=== PATIENT | female | born 1960 | race Caucasian/White ===

== ENCOUNTER 2024-07-17 06:54 | Emergency (ER) | payer BC, SELFPAY ==
--- OUTSIDE RECORDS SUMMARY | 2024-07-17 06:56 | XMS_ITS | Clinical Summary ---
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 90 Capsule 3 2023 Active SUMAtriptan (IMITREX) 50 mg tabletIndications:Migr star without status migrainosus, not intractable, unspecified migraine type TAKE AT MINIMUM 2 HOURS APART. MAXIMUM DAILY DOSE: 200MG (4 TABLETS) PER 24 HOURS 9 Tablet 11 2023 Active rosuvastatin (CRESTOR) 40 mg tabletIndications:Fami lial hypercholesterolemia Take 1 Tablet (40 mg) by mouth once daily. 90 Tablet 1 2024 Active tirzepatide, weight loss, (Zepbound) 2.5 mg/0.5 mL penIndications:Hyperli pidemia, unspecified hyperlipidemia type,Obesity (BMI 30-39.9) Inject 2.5 mg subcutaneous once weekly. 6 mL 3 2024 Active estradioL (Vagifem) 10 mcg tab vaginal tabletIndications:Vagi nal atrophy INSERT 1 TABLET VAGINALLY EVERY MONDAY AND MONDAY 24 Tablet 2024 Active estradioL (Vagifem) 10 mcg tab vaginal tabletIndications:Vagi nal atrophy Insert 1 Tablet (10 mcg) into the vagina every Monday and . 24 Tablet 2 06/30 Discontinued Active Problems Problem Noted Date Diagnosed Date Hyperlipidemia, unspecified 11/14/2021 Overview (11/14/2021): Declined statin 07/2021. Coronary calcium score 10/2021=zero. plan work on nonmedication factors. Colon polyp 04/02/2021 Overview (04/02/2021): Colonoscopy 03/2021 SSA, repeat in 5 years, propofol Gastroesophageal reflux disease without esophagi tis 05/11/2018 Overview (05/11/2018): EGD 04/2017 normal Screen for colon cancer 08/15/2012 Overview (08/15/2012): Colonoscopy 07/2012 normal repeat in 10 years Hallux limitus 06/12/2012 Tachycardia, unspecified 09/26/2011 Overview (06/12/2012): Recent normal stress test, summer 2011. Kimberly Hong M.D. 06/12/2012 3:04 PM Migraine, unspecified, witho ut mention of intractable migraine without mention of status migrainosus 06/12/2007 Edema 06/12/2007 Resolved Problems Problem Noted Date Diagnosed Date Resolved Date Changing skin lesion 07/17/2009 011 Dizziness and giddiness 06/12/200707/16 Palpitations 06/12/2007 07/28/2010 Excessive or frequent menstruation 06/12/2007 07/11/2017 Encounters Date Type Department Care Team Description 06/28/2024 Refill [facility] [address] [place] [address] Anastasiia Vann, Refill Request (Vagifem) 06/27/2024 Telephone [facility] [address] [facility] [place] [address] Anastasiia Vann DO Prior Authorization (tirzepatide, weight loss, (Zepbound) 2.5 mg/0.5 mL pen (Approved 06/27/2024- 02/27/2025)) 06/25/2024 Telephone [facility] [address] [facility] [place] [address] Anastasiia Vann DO 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) 06/17/2024 10:00 AM LOGISTICS ANALYST Office Visit [facility] [address] [facility] [address] [place] [id number] Ruben Mckeon MD Follow Up (Annual f/u, labs prior, zio done 03/2024) 06/17/2024 9:31 AM LOGISTICS ANALYST - 06/17/2024 11:59 PM LOGISTICS ANALYST Hospital Encounter [facility] [address] [place] [address] Familial hypercholesterolemia 06/16/2024 Travel from Last 3 Months Immunizations Immunization Administration Dates Next Due COVID-19 vaccine (Parakweet-Bio NTech 30mcg/0.3mL) NATAN BERNARDO 03/17/2021,07/28/2020,07/07/2020 HepA-HepB (Twinrix) 10/01/2003,04/21/2003,2002 Influenza RIV4 (Age 18+ Years) PRESERV FREE 01/15 Influenza, IIV3 (Age >=3 years) 02/02/2010 Influenza, IIV4 02/02/2021,01/02/2020,03/27/2018 Td (Age >=7 Years) 03/27/2018,02/23/1998 Tdap 06/12/2007 Zoster (Shingrix-RZV, recombinant) 02/02/2021, Family History Medical History Relation Name Comments Hyperlipidemia Brother 1 Arden Shearer Hypertension Brother 1 Arden Shearer Esophageal cancer Brother 2 Calvin Hyperlipidemia Brother 2 Calvin Coronary artery disease Father Juan Shearer fi rst NH at 50, CABG at 55, heart transplant at age 60 Hyperlipidemia Father Juan Shearer Cancer-breast Maternal Grandmother Aviva hamm Hyperlipidemia Sister 1 Arlen Other Sister 1 Arlen multiple colon polyps Hyperlipidemia Sister 2 Analia Cancer-colon No Family History Cancer-ovarian No Family History Relation Name Status Comments Brother 1 Arden Shearer Brother 2 Calvin Alive Father Juan Shearer MVA Maternal Grandmother Aviva hamm Mother MVA Sister 1 Arlen Sister 2 Analia Alive Son 1 Sha Alive Son 2 Jose Alive Social History Tobacco Use Types Packs/Day Years Used Date Smoking Tobacco: Never Smokeless Tobacco: Never Tobacco Cessation:Counseling Given: Not Answered Alcohol Use Standard Drinks/Week Comments Yes 4 (1 standard drink = 0.6 oz pure alcohol) 3 times weekly a few drinks at a sitting PHQ-2 Answer Date Recorded PHQ-2 TOTAL SCORE 0 09/26/2023 Social Connections Answer Date Recorded Do you often feel lonely or isolated from those around you? 0 09/26/2023 Financial Resource Strain Answer Date R ecorded Difficulty of Paying Living Expenses 3 09/26/2023 Difficulty of Paying Living Expenses Not on file 09/26/2023 Food Insecurity Answer Date Recorded Do you worry your food will run out before you are able to buy more? 1 09/26/2023 Transportation Needs Answer Date Record ed Does lack of transportation keep you from medica l appointments? 1 09/26/2023 Does lack of transportation keep you from work, meetings or getting things that you need? 1 09/26/2023 Housing Stability Answer Date Recorded What is your housing situation today? 1 09/26/2023 Utilities Answer Date Recorded Do you have trouble paying f or utilities (for example, heat, electricity, water, phone)? 1 09/26/2023 Comments No Sex and Gender Information Value Date Recorded Sex Assigned at Not on file Legal Sex Female 6:20 AM LOGISTICS ANALYST Gender Identity Not on file Sexual Orientation Not on file Obstetrics History Para Term AB IAB SAB Ectopic Multiple Livin g Live Births 2 2 0 0 0 0 0 0 0 2 2 Date Outcome GA Total Labor Labor/2nd/3rd Weight Sex Type Anes PTL Nae A1 A5 Name Clin Para Living Para Living Last Filed Vital Signs Vital Sign Reading Time Taken Comments Blood Pressure 134/80 06/17/2024 9:59 AM LOGISTICS ANALYST Pulse 84 06/17/2024 9:59 AM LOGISTICS ANALYST Temperature 36.8 C (98.3 F) 07/30/2021 9:33 AM CDT Respiratory Rate 14 07/30/2021 9:33 AM CDT Oxygen Saturation 99% 06/17/2024 9:59 AM LOGISTICS ANALYST Inhaled Oxygen Concentration - - Weight 79.4 kg (175 lb) 06/17/2024 9:59 AM LOGISTICS ANALYST Height 162.6 cm (5' 4) 06/17/2024 9:59 AM LOGISTICS ANALYST Body Mass Index 30.04 06/17/2024 9:59 AM LOGISTICS ANALYST Plan of Treatment Upcoming Encounters Date Type Department Care Team (Late st Contact Info) Description 10/01/2024 8:20 AM CDT Ancillary Procedure [facility] [address] [place] [address] 10/01/2024 8:45 AM CDT Office Visit [facility] [address] [place] [address] Anastasiia Vann DO [address] [place] [address] Health Maintenance Due Date Last Done Comments Pneumococcal series for age 50+ (1 of 1 - PCV) 06/21/2011 COVID-19 vaccine series ( season) 2023 03/17/2021, 07/28/2020, 07/07/2020 Depression screening for age 12+ 09/25/2024 09/26/2023, 08/24/2022, 07/30/2021, Additional history exists Mammogram for age 45-75 09/25/2024 09/26/19 24, 08/24/2022, 07/27/2021, Additional history exists Influenza Vaccine (Season Ended) 2024 01/31/2022, 02/02/2021, 01/02/2020, Additional history exists BMI (ht and wt on same day) for age 18+ 06/17/2025 06/17/2024, 09/26/2023, 06/26/2023, Additional history exists Colonoscopy through age 75 04/01/202604/01, 04/01/2021, 08/15/2012, Additional history exists Pap test for age 21-65 08/25/2027 , 08/24/2022, 03/27/2018, Additional history exists Tetanus booster 03/27/2028 03/27/2018, 05/19, 02/23/1998 Lipids for age 45-75 06/17/2029 06/17/2024, 06/26/2023, 11/24/2022, Additional history exists RSV vaccine for adults or (1 - 1-dose 75+ series) 2036 Tdap Completed 06/12/2007 Hepatitis C screening for ag e 18-79 Completed 06/23/2020 Zoster (shingles) series for age 50+ Completed 02/02/2021, 11/20/2020 HIV for age 15-65 Completed 08/23/2022 Procedures Procedure Name Priority Date/Time Associated Diagnosis Comments LIPID PANEL W REFLEX MEASURED LDL Today 06/17/2024 9:55 AM LOGISTICS ANALYST Familial hypercholesterolemia EXTENDED HOLTER Routine 04/24/2024 Tachycardia XR MAMMO HOMER BILAT SCREEN Routine 09/26/2023 1:26 PM CDT Encounter for screening mammogram for malignant neoplasm of breast HPV HIGH RISK Routine 08/24/2022 8:51 AM CDT Cervical cancer screening LC HIV-1/O/2, 4TH GENERATION Routine 08/23/2022 7:25 AM CDT Screening for HIV (human immunodeficiency virus) COLONOSCOPY 04/01/2021 8:19 AM LOGISTICS ANALYST ANTI HCV Routine 06/23/2020 8:37 AM LOGISTICS ANALYST Need for hepatitis C screening test from Last 3 Months or Most Recently Relevant to Health Maintenance Results * LIPID PANEL W REFLEX MEASURED LDL (06/17/2024 9:55 AM LOGISTICS ANALYST) CHOLESTEROL,TOTAL 181 100 - 199 mg/dL 06/17/2024 10:31 AM LOGISTICS ANALYST [facility] Comment: Cholesterol, Total Reference Ranges Desirable <200 mg/dL Borderline 200-239 mg/dL High >=240 mg/dL TRIGLYCERIDES 87 <150 mg/dL 06/17/2024 10:31 AM [facility] HDL CHOLESTEROL 70 >40 mg/dL 10:31 AM [facility] NON-HDL CHOLESTEROL 111 <145 mg/dl 06/17/2024 10:31 AM [facility] CHOL/HDL RATIO 2.59 <4.50 06/17/2024 10:31 AM [facility] LDL CHOLESTEROL 94 <=130 mg/dL 06/17/2024 10:31 AM [facility] VLDL CHOLESTEROL 17 <=30 mg/dL 06/18/19 10:31 AM [facility] PROVIDER ORDERED STATUS RANDOM 06/17/2024 10:31 AM [facility] Blood BLOOD SPECIMEN / Unknown Venipuncture / Unknown 06/17/2024 9:55 AM LOGISTICS ANALYST 06/17/2024 9:55 AM [facility] us Cezar Thompson MD CHEMISTRY Final Result [facility] [address] [place] [address] * ZIO PATCH XT - weekly to monthly symptoms. (04/24/2024) 04/24/2024 Narrative Cuong Denny MD - 05/22/2024 12:00 AM LOGISTICS ANALYST Agree with Findings. Please see scan document for full report. Signed By CUONG DENNY MD Procedure Note Cuong Denny MD - 05/22/2024 Agree with Findings. Please see scan document for full report. Signed By CUONG DENNY MD us Cezar Thompson MD CARDIAC SERVICES ORD Final Result * XR MAMMO HOMER BILAT SCREEN (09/26/2023 1:26 PM CDT) Anatomical Region Laterality Modality BREASTS, Breast Left, Breast Right Bilateral Mammography Impressions 09/26/2023 2:06 PM CDT There is no radiographic evidence for malignancy. Recommend annual mammograms. MAMMOGRAM ASSESSMENT: ACR 1 Negative PATIENTS: You will also receive a letter with your examination results in an easy to read format. If you have questions about your results, please contact your referring provider. Narrative 09/26/2023 2:06 PM CDT For Patients: As a result of the Century Cures Act, medical imaging exams and procedure reports are released immediately into your electronic medical record. You may view this report before your referring provider. If you have questions, please contact your health care provider. XR MAMMO HOMER BILAT SCREEN [[id number]] CLINICAL HISTORY: This is an asymptomatic 63 y.o. patient. INDICATION FOR EXAM: Mammogram Screening. TECHNIQUE: CC & MLO views were obtained. This study was evaluated with the assistance of Computer-Aided Detection. Breast Tomosynthesis was used in interpretation. COMPARISON FILM: Yes [facility] FINDINGS: The breasts are heterogeneously dense, which may obscure small masses. There are no dominant masses, suspicious micro calcifications or areas of architectural distortion. Anastasiia Vann DO MAMMO Final Resu lt * HPV HIGH RISK (08/24/2022 8:51 AM CDT) TYPE 16 Negative Negative 08/30/2022 10:21 AM CDT [facility] TYPE 18 Negative Negative 08/30/2022 10:21 AM CDT [facility] OTHER HIGH RISK TYPES Negative Negative 08/30/2022 10:21 AM CDT [facility] Other (Cervical) Non-Blood / Unknown 08/24/2022 8:51 AM CDT 08/26/2022 4:41 PM CDT Narrative [facility] - 08/30/2022 10:21 AM CDT HPV types 16, 18, 31, 33, 35, 39, 45, 51, 52, 56, 58, 59, 66 and 68 DNA were undetectable or below the pre-set threshold. Methodology: Renetta Jocelynn 4800 HPV Test Anastasiia Osorio Edwar DO MICROBIOLOGY Final Resu lt [facility] [address] [place] [address], [place] * LC HIV-1/O/2, 4TH GENERATION (08/23/2022 7:25 AM CDT) HIV Scr 4th Gen Non Reactive Non Reactive 08/26/2022 4:08 AM CDT [facility] ([facility]) Comment: HIV Negative HIV-1/HIV-2 antibodies and HIV-1 p24 antigen were NOT detected. There is no laboratory evidence of HIV infection. Blood BLOOD SPECIMEN / Unknown Venipuncture / Unknown 08/23/2022 7:25 AM CDT 08/23/2022 7:29 AM CDT Narrative [facility]) - 08/26/2022 4:08 AM CDT Performed at: [address] [place] [id number] Gyn: Gagan Hicks MD, Phone: [phone] Anastasiia Osorio Edwar LABORATORY Final Resu lt [facility] ([facility]) [address] [place] [address], [place] * COLONOSCOPY (04/01/2021 8:19 AM LOGISTICS ANALYST) 04/01/2021 8:19 AM LOGISTICS ANALYST Narrative Transcriptions Rudy Macias MD - 04/01/2021 9:26 AM CST Patient Name: Trudi Snider Procedure Date: 04/01/2021 Gender: Female Date of : 1960 Admit Type: Outpatient Procedure: Colonoscopy Proceduralist: Rudy Macias MD , Annelise Verdugo RN(Nurse) Indications/Pre-Op Diagnosis: Screening for colorectal malignant neoplasm, Last colonoscopy: April 2010 Medications: Fentanyl 200 micrograms IV, Midazolam 5 mgIV, The level of sedation administered wasmoderate Procedure Description: The patient had risks, benefits and alternatives explained to andgave informed consent. The patient had a stable cardiopulmonary status and judged an adequate candidate for conscious sedation. The colonoscope was passed through the anus and advanced to thececum, identified by appendiceal orifice and ileocecal valve. Thecolonoscopy was performed without difficulty. The patient tolerated the procedure well. The quality of the bowel preparation was good. The ileocecal valve, appendiceal orifice, and rectum were photographed. Complications: No immediate complications. Estimated Blood Loss & Specimen: Estimated blood loss: none. Specimen collected - Yes and sent to Laboratory Findings: Skin tags were found on perianal exam. A 5 mm polyp was found in the cecum. The polyp was sessile. The polyp was removed with a cold snare. Resection and retrieval werecomplete. The colon (entire examined portion) was significantly redundant. The exam was otherwise without abnormality on direct and retroflexion views. Impressions/Post-Op Diagnosis: - Perianal skin tags found on perianal exam. - One 5 mm polyp in the cecum, removed with a cold snare. Resectedand retrieved. - Redundant colon. - The examination was otherwise normal on direct and retroflexionviews. Recommendation: - Patient has a contact number available for emergencies. The signsand symptoms of potential delayed complications were discussed with the patient. Return to normal activities tomorrow. Written discharge instructions were provided to the patient. - Resume previous diet. - Continue present medications. - Await pathology results. - Repeat colonoscopy is recommended. The colonoscopy date will be determined after pathology results from today's exam become available for review. - Patient's sedation for a repeat study will require Anesthesia staff assistance. Moderate Sedation: Moderate (conscious) sedation was administered by the endoscopy nurse and supervised by the endoscopist. The following parameters were monitored: oxygen saturation, heart rate, respiratory rate, blood pressure, adequacy of pulmonary ventilation and reponse to care. Please refer to the patient's medical record flowsheets and nursing notes for moderate sedation details. Total physician intraservice time was 30 minutes. Rudy Macias MD 04/01/2021 9:26:17 AM This report has been signed electronically. Note Initiated On: 04/01/2021 8:19 AM Procedure Code(s): --- Professional --- 36201, Colonoscopy, flexible; with removalof tumor(s), polyp(s), or other lesion(s) bysnare technique Diagnosis Code(s): --- Professional --- Z12.11, Encounter for screening formalignant neoplasm of colon K63.5, Polyp of colon K64.4, Residual hemorrhoidal skin tags Q43.8, Other specified congenitalmalformations of intestine CPT copyright 2020 [employer]. All rights reserved. The codes documented in this report are preliminary and upon margin clerk reviewmay be revised to meet current compliance requirements. Scope In: 8:48:26 AM Scope Withdrawal Time 0 hours 8 minutes 59 seconds Scope Out: 9:16:45 AM us Rudy Macias MD PROCEDURE ORD Final Res ult * ANTI HCV (06/23/2020 8:37 AM LOGISTICS ANALYST) HEPATITIS C ANTIBODY Non-React tyra Non-React tyra 06/23/2020 4:05 PM LOGISTICS ANALYST [facility] Comment:Antibodies to HCV no t detected; does not exclude the possibility of exposure to HCV. Blood BLOOD SPECIMEN / Unknown Venipuncture / Unknown 06/23/2020 8:37 AM LOGISTICS ANALYST 06/23/2020 8:37 AM LOGISTICS ANALYST us Anastasiia Vann DO SEND OUTS Final Resu lt [facility] 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
[2024-07-17 06:57] VITALS: BP 148/107; PULSE 97; RESP 16; TEMP 36.7; O2SAT 98; BMI 29.0
--- NOTE | 2024-07-17 08:09 | ED.GENADULT ---
HPI - General Adult General Chief complaint: Ear/Nose/Throat Problem Stated complaint: L ear infection Time Seen by Provider: 07/17/24 07:40 History of Present Illness HPI narrative: [age] year white female with a history of left ear pain for the last 4 5 days, was treated with Augmentin and prednisone in the Urgent Care in [place]. They returned through the [place] yesterday and she noted increasing pain last night her left ear. Feels like it is not much better. No fevers. The illness started with a viral type syndrome with fever sore throat . She is largely healthy. Is allergic to oxycodone. Related Data Home Medications ?Medication ?Instructions ?Recorded ?Confirmed amoxicillin 875 mg-potassium 1 tab PO BID 07/17/24 07/17/24 clavulanate 125 mg tablet esomeprazole magnesium 40 mg 40 mg PO DAILY 07/17/24 07/17/24 capsule,delayed release estradiol 10 mcg vaginal tablet 10 mcg vaginal 2XW 07/17/24 07/17/24 (Vagifem) methylprednisolone 4 mg tablets in 4 mg PO DIRECTED 07/17/24 07/17/24 a dose pack rosuvastatin 40 mg tablet 40 mg PO DAILY 07/17/24 07/17/24 sumatriptan succinate 50 mg tablet PO 07/17/24 Previous Rx's ?Medication ?Instructions ?Recorded ketorolac 10 mg tablet 10 mg PO Q6H PRN pain 2 days #7 07/17/24 tabs Allergies Allergy/AdvReac Type Severity Reaction Status Date / Time oxycodone AdvReac Verified 07/17/24 07:04 Review of Systems Status of ROS: Reports: 6 or more systems reviewed and unremarkable except as noted in History and below Narrative: No breathing diff the difficulty, no chest pain, no skin rashes or rigors. PFSH PFS Social History Smoking Status: Never smoker How often do you have a drink containing alcohol: 2-4 times a month AUDIT-C Alcohol total score: 2 Non-prescribed substance use: denies use Exam Narrative: Exam Narrative: Objective: Patient's vital signs show elevated blood pressure Alert orient x3 no facial asymmetry, no periauricular rashes on the left ear, right TM appears clear left TM shows some bulging and some purulent material behind the eardrum. There is some slight redness over the superior aspect of the rim of the ear as well. Const: Vital Signs, click to edit/add: Vital Signs - 24 hr 07/17/24 06:57 Temperature 98.0 F Pulse Rate [Pulse Oximeter] 97 Respiratory Rate 16 Blood Pressure [Le ft Upper Arm] 148/107 H Pulse Oximetry 98 Oxygen Delivery Me thod Room Air Course Vital Signs Vital signs: Initial Vital Signs Temperature 98.0 F 07/17/24 06:57 Temperature Source Temporal Artery Scan 07/17/24 06:57 Pulse Rate 97 07/17/24 06:57 Pulse Rhythm Regular 07/17/24 06:57 Respiratory Rate 16 07/17/24 06:57 Blood Pressure 148/107 H 07/17/24 06:57 Blood Pressure Mean 120 H 07/17/24 06:57 Blood Pressure Position Sitting 07/17/24 06:57 Pulse Oximetry 98 07/17/24 06:57 Oxygen Delivery Method Room Air 07/17/24 06:57 Vital Signs Temperature 98.0 F 07/17/24 06:57 Pulse Rate 97 07/17/24 06:57 Respiratory Rate 16 07/17/24 06:57 Blood Pressure 148/107 H 07/17/24 06:57 Pulse Oximetry 98 07/17/24 06:57 Oxygen Delivery Method Room Air 07/17/24 06:57 Temperature 98.0 F 07/17/24 06:57 Pulse Rate 97 07/17/24 06:57 Respiratory Rate 16 07/17/24 06:57 Blood Pressure 148/107 H 07/17/24 06:57 Pulse Oximetry 98 07/17/24 06:57 Oxygen Delivery Method Room Air 07/17/24 06:57 Medications Administered Medications: Discontinued Medications Generic Name Dose Route Start Last Admin Trade Name Freq PRN Reason Stop Dose Admin Ceftriaxone Sodium 500 mg 07/17/24 08:06 07/17/24 08:17 Ceftriaxone 500 Mg Vial IM 07/17/24 08:07 500 mg ONCE ONE Administration Lidocaine HCl 1 ml 07/17/24 08:06 07/17/24 08:17 Lidocaine 1% 5 Ml (Pf) 5 Ml Vial IM 1 ml DIRECTED PRN Administration Pain Medical Decision Making MDM Narrative Medical decision making narrative: [age] year white female with a left otitis media and probably increased pain from barometric pressure of traveling through the [facility]. At this point would recommend an injection of Rocephin 500 mg IM, will have her finish Augmentin, would also call her in some Toradol as she is allergic to oxycodone. Would set her up to see Dr. Ellis in the next 5-7 days for recheck make sure this is cleared and she does not need additional treatment. Discharge Plan Discharge Clinical Impression: Otitis media Patient Disposition: Home w/ Parent or Adult Condition: Stable Additional Instructions: Finished Augmentin, all call in Toradol for you to get at the pharmacy, he received an injection of Rocephin today. Recommend he make you appointment to see Dr. gannon in the next 5-7 days. Follow up appointment is scheduled at the [facility] on 07/23 with a 9am appointment time. Please arrive at 8:45am to complete paperwork. If you have any questions, please call [phone]. [facility] [address] [place] [address] Activity Level: Light activity Discharge Diet: Regular Prescriptions: New ketorolac 10 mg tablet 10 mg PO Q6H PRN (Reason: pain) 2 Days Qty: 7 0RF No Action sumatriptan succinate 50 mg tablet PO esomeprazole magnesium 40 mg capsule,delayed release(DR/EC) 40 mg PO DAILY methylprednisolone 4 mg tablets,dose pack 4 mg PO DIRECTED amoxicillin-pot clavulanate 875-125 mg tablet 1 tab PO BID rosuvastatin 40 mg tablet 40 mg PO DAILY estradiol [Vagifem] 10 mcg tablet 10 mcg vaginal 2XW Follow Up/Referrals: Anastasiia Vann DO [Primary Care Provider] - Stand Alone Forms: [facility] Info Inst[facility]
--- OUTSIDE RECORDS SUMMARY | 2024-07-17 08:14 | XMS_ITS | Clinical Summary ---
Author Organization [facility] Address [address] [place] [id number] Care Team Providers Care Rerecording Mixer Name Role Phone Edwar Anastasiia Osorio DO Primary Care Provider [phone]- [phone] Allergies Active Allergy Reactions Criticality Noted Date [...] Type Department Care Team Description 06/28/2024 Refill [facility] [address] [place] [address] Anastasiia Vann, Refill Request (Vagifem) 06/27/2024 Telephone [facility] [address] [place] [address] Anatsasiia Vann DO Prior Authorization (tirzepatide, weight loss, (Zepbound) 2.5 mg/0.5 mL pen (Approved 06/27/2024- 02/27/2025)) 06/25/2024 Telephone [facility] [address] [place] [address] Anastasiia Vann DO Referral (sustainability specialist) 06/17/2024 10:00 AM [employer] Office Visit [facility] [address] [facility] [address] [place] [phone] Ruben Mckeon MD Follow Up (Annual f/u, labs prior, zio done 03/2024) 06/17/2024 9:31 AM [employer]IAN CREWMEMBER - 06/17/2024 11:59 PM [employer] CREWMEMBER Hospital Encounter [facility] [address] [facility] [place] [address] Familial hypercholesterolemia 06/16/2024 Travel from Last 3 Months Immunizations Immunization Administration Dates Next Due COVID-19 vaccine ([facility] 30mcg/0.3mL) NATAN BERNARDO 03/17/2021,07/28/2020,07/07/2020 HepA-HepB (Twinrix) [...] artery disease Father Juan Shearer fi rst MD at 50, CABG at 55, heart transplant [...] Mother MVA Sister 1 Arlen Sister 2 Anaila Alive Son 1 Sha Alive Son 2 [...] on file Legal Sex Female 6:20 AM [employer] CRE[employer]MEMBER Gender Identity Not on file Sexual Orientation [...] Comments Blood Pressure 134/80 06/17/2024 9:59 AM [employer]BER Pulse 84 06/17/2024 9:59 AM [employer]BER Temperature 36.8 C (98.3 F) 07/30/2021 9:33 AM CDT Respiratory Rate 14 07/30/2021 9:33 AM CDT Oxygen Saturation 99% 06/17/2024 9:59 AM [employer]BER Inhaled Oxygen Concentration - - Weight 79.4 kg (175 lb) 06/17/2024 9:59 AM [employer]BER Height 162.6 cm (5' 4) 06/17/2024 9:59 AM [employer] CRE[employer]MEMBER Body Mass Index 30.04 06/17/2024 9:59 AM [employer]MEMBER Plan of Treatment Upcoming Encounters Date Type Department Care Team (Late st Contact Info) Description 10/01/2024 8:20 AM CDT Ancillary Procedure [facility] [address] [place] [address] 10/01/2024 8:45 AM CDT Office Visit [facility] [address] [place] [address] Anastasiia Vann DO [address] [place] [address] Health Maintenance Due Date Last Done Comments [...] REFLEX MEASURED LDL Today 06/17/2024 9:55 AM [employer]BER Familial hypercholesterolemia EXTENDED HOLTER Routine 04/24/2024 Tachycardia XR MAMMO HOMER BILAT SCREEN Routine 09/26/2023 1:26 PM CDT Encounter for screening mammogram for malignant neoplasm of breast HPV HIGH RISK Routine 08/24/2022 8:51 AM CDT Cervical cancer screening LC HIV-1/O/2, 4TH GENERATION Routine 08/23/2022 7:25 AM CDT Screening for HIV (human immunodeficiency virus) COLONOSCOPY 04/01/2021 8:19 AM [employer] ANTI HCV Routine 06/23/2020 8:37 AM [employer]BER Need for hepatitis C screening test from Last 3 Months or Most Recently Relevant to Health Maintenance Results * LIPID PANEL W REFLEX MEASURED LDL (06/17/2024 9:55 AM [employer]MEMBER) CHOLESTEROL,TOTAL 181 100 - 199 mg/dL 06/17/2024 10:31 AM AMP[employer]IAN CREWMEMBER [facility] Comment: Cholesterol, Total Reference Ranges Desirable <200 mg/dL Borderline 200-239 mg/dL High >=240 mg/dL TRIGLYCERIDES 87 <150 mg/dL 06/17/2024 10:31 AM [facility] HDL CHOLESTEROL 70 >40 mg/dL 10:31 AM [facility] NON-HDL CHOLESTEROL 111 <145 mg/dl 06/17/2024 10:31 AM [facility] CHOL/HDL RATIO 2.59 <4.50 06/17/2024 10:31 AM [facility] LDL CHOLESTEROL 94 <=130 mg/dL 06/17/2024 10:31 AM [facility] VLDL CHOLESTEROL 17 <=30 mg/dL 06/18/19 10:31 AM [facility] PROVIDER ORDERED STATUS RANDOM 06/17/2024 10:31 AM [facility] Blood BLOOD SPECIMEN / Unknown Venipuncture / Unknown 06/17/2024 9:55 AM [employer]BER 06/17/2024 9:55 AM [facility] us Cezar Thompson MD CHEMISTRY Final Result [facility] [address] [place] [address] * ZIO PATCH XT - weekly to monthly symptoms. (04/24/2024) 04/24/2024 Narrative Cuong Denny MD - 05/22/2024 12:00 AM [employer]BER Agree with Findings. Please see scan document [...] care provider. XR MAMMO HOMER BILAT SCREEN [[id number]] CLINICAL HISTORY: This is an asymptomatic 63 y.o. patient. INDICATION FOR EXAM: Mammogram Screening. TECHNIQUE: CC & MLO views were obtained. This study was evaluated with the assistance of Computer-Aided Detection. Breast Tomosynthesis was used in interpretation. COMPARISON FILM: Yes [id number] 07[facility] FINDINGS: The breasts are heterogeneously dense, which may obscure small masses. There are no dominant masses, suspicious micro calcifications or areas of architectural distortion. Anastasiia Vann DO MAMMO Final Resu lt * HPV HIGH RISK (08/24/2022 8:51 AM CDT) TYPE 16 Negative Negative 08/30/2022 10:21 AM CDT [facility] TYPE 18 Negative Negative 08/30/2022 10:21 AM CDT [facility] OTHER HIGH RISK TYPES Negative Negative 08/30/2022 10:21 AM CDT [facility] Other (Cervical) Non-Blood / Unknown 08/24/2022 8:51 AM CDT 08/26/2022 4:41 PM CDT Narrative [facility] - 08/30/2022 10:21 AM CDT HPV types 16, 18, 31, 33, 35, 39, 45, 51, 52, 56, 58, 59, 66 and 68 DNA were undetectable or below the pre-set threshold. Methodology: Renetta Jocelynn 4800 HPV Test Anastasiia Osorio Edwar DO MICROBIOLOGY Final Resu lt [facility] [address] [place] [address], [place] * LC HIV-1/O/2, 4TH GENERATION (08/23/2022 7:25 AM CDT) HIV Scr 4th Gen Non Reactive Non Reactive 08/26/2022 4:08 AM CDT [facility] Comment: HIV Negative HIV-1/HIV-2 antibodies and HIV-1 p24 antigen were NOT detected. There is no laboratory evidence of HIV infection. Blood BLOOD SPECIMEN / Unknown Venipuncture / Unknown 08/23/2022 7:25 AM CDT 08/23/2022 7:29 AM CDT Narrative [facility] - 08/26/2022 4:08 AM CDT Performed at: [address] [place] [id number] Tin Tie Machine Operator Automatic: Gagan Hicks MD, Phone: [phone] Anastasiia Osorio Edwar LABORATORY Final Resu lt [facility] ([facility]) [address] [place] [address], [place] * COLONOSCOPY (04/01/2021 8:19 AM AMPH[employer]IAN CREWMEMBER) 04/01/2021 8:19 AM [employer] CREWMEMBER Narrative Transcriptions Rudy Macias MD - 04/01/2021 [...] 8:19 AM Procedure Code(s): --- Professional --- 29696, Colonoscopy, flexible; with removalof tumor(s), polyp(s), or other lesion(s) bysnare technique Diagnosis Code(s): --- Professional --- Z12.11, Encounter for screening formalignant neoplasm of colon K63.5, Polyp of colon K64.4, Residual hemorrhoidal skin tags Q43.8, Other specified congenitalmalformations of intestine CPT copyright 2020 [employer]. All rights reserved. The codes documented in this report are preliminary and upon health information coder reviewmay be revised to meet current compliance requirements. Scope In: 8:48:26 AM Scope Withdrawal Time 0 hours 8 minutes 59 seconds Scope Out: 9:16:45 AM us Rudy Macias MD PROCEDURE ORD Final Res ult * ANTI HCV (06/23/2020 8:37 AM [employer] CREWMEMBER) HEPATITIS C ANTIBODY Non-React tyra Non-React tyra 06/23/2020 4:05 PM [employer]IBIAN CREWMEMBER [facility] Comment:Antibodies to HCV no t detected; does not exclude the possibility of exposure to HCV. Blood BLOOD SPECIMEN / Unknown Venipuncture / Unknown 06/23/2020 8:37 AM [employer]IAN CREWMEMBER 06/23/2020 8:37 AM AMP[employer]IAN CREWMEMBER us Anastasiia Vann DO SEND OUTS Final Resu lt [id number] [address] [place] [address], [place] from Last 3 Months or Most Recently Relevant to Health Maintenance Insurance [employer] [facility] [employer] Care Teams Rerecording Mixer Relationship Specialty Start Date End Date Anastasiia Vann DO [address] [place] [address] PCP - General Family Practice 02/25/15
[2024-07-17] MEDS: LIDOCAINE 1% 5 ml (pf) 5 ML VIAL 1 ML IM (08:17)
[2024-07-17] MEDS: cefTRIAXone 500 MG VIAL IM (08:17)
== END 2024-07-17 08:45 | disposition home or self-care (01) ==
LOC: ED 08:12
PROVIDERS: Emergency Provider Family Medicine; PCP Family Medicine
DX: H66.92 Otitis media, unspecified, left ear (principal)
CPT/HCPCS: 96372; 99283; 99284; J0696

== ENCOUNTER 2025-04-08 22:21 | Emergency (ER) | payer BC, SELFPAY ==
--- OUTSIDE RECORDS SUMMARY | 2024-12-03 05:54 | XMS_ITS | Continuity of Care Document ---
Author Organization [facility] Address [address] [address] [place] [address] Phone Care Team Providers Care Channel Opener Name Role Phone Sebastian Rodrigues MD Unavailable Unavailabl e Allergies, Adverse Reactions, Alerts Substance Reaction Status Criticality oxycodone Rash Active No Information Medications Medication Instructions Dosage Effective Dates (start - stop) Status Comments rosuvastatin 40 mg tablet take 1 tablet by oral route every day 40 MG - Active Zepbound 5 mg/0.5 mL subcutaneous pen injector inject (5MG) by subcutaneous route every week 5 MG - Active sucralfate 1 gram tablet take 1 tablet by oral route 4 times every day on an empty stomach 1 hour before meals and at bedtime as needed 1 G - Active esomeprazole magnesium 40 mg capsule,delayed release take 1 capsule by oral route every day 40 MG - Active Imitrex 25 mg tablet take 1 tablet by oral route once with fluids as early as possible after the onset of a migraine attack;may repeat after 2 hours if headache returns, not to exceed 200mgin 24hrs 25 MG - Active multivitamin tablet take 1 tablet by oral route every day with food - Active AZELAIC ACID (unknown strength) apply by topical route every day a thin layer to the affected area(s) Not Available - Active METRONIDAZOLE (unknown strength) apply by topical route every day a thin layer to the affected area(s) in the morning and evening Not Available - Active TRETINOIN (unknown strength) apply by topical route every day to the affected area(s) at bedtime Not Available - Active TRIAMCINOLONE ACETONIDE (unknown strength) apply by topical route 2 times every day a thin layer to the affected area(s) as needed Not Available - Active estradiol 10 mcg vaginal tablet insert 1 tablet by vaginal route 2 times per week - Active Procedures Procedure Date Offic Cons Low New Level 4 Advance Directives Directive Yes / No Effective Date File Name No Information Encounters Encounter Description Practice Location Reason(s) For Visit Diagnoses Date Provider Providers Copied on Encounter [facility], [address] [address], [place], [place], [id number], [place] tel:[phone] [facility] No Information 5 Bernardo Cortes. [address] [facility], [address], [id number], [place]. [phone] Offic Cons Low [facility], [address] [address], [place], [place], [id number], [place] tel:[phone] [facility] GI Symptoms or Concerns (chief complaint) Upper abdominal painAbdominal wall pain 5 Joseph Barker. [address] [facility], [address], [id number], [place]. tel:[phone] Referring Provider: Anastasiia Vann DO, [address] [place] [address], [address]. tel:[phone] [facility], [address] [address], [place], [place], [id number], [place] tel:[phone] [facility] No Information 5 Bernardo Cortes. [address] [facility], [facility] [address], [place], [id number], [place]. [phone] [facility], [address] [address], [place], [id number], [place] tel:[phone] [facility] Hepatic cyst 1 Jona Harley. [address] [place] [address], [address], [id number], [place]. [phone] [facility], [address] [address], [place], [id number], [place] tel:[phone] [facility] Encounter for screening colonoscopy 1 Jona Harley. [address] [facility], [address], [id number], [place]. tel:[phone] New Level 4 [facility], [address] [address], [place], [id number], [place] tel:[phone] [facility] GI Symptoms or Concerns (chief complaint) Additional Narrative (chief complaint) Upper abdominal pain 1 Jona Harley. [address], [id number], [place]. tel:[phone] Referring Provider: Anastasiia Vann DO, [address] [place] [address], [address]. tel:[phone] [facility], [address] [address], [place], [id number], [place] tel:[phone] [facility] Procedures No Information 1 Syl Gutierrez. [address], [id number], [place]. tel:[phone] Family History Family Member Type Diagnosis Age At Onset Brother Problem (finding) GERD Sister Problem (finding) diverticulitis of colon Mother Problem (finding) gallbladder disease Sister Problem (finding) Colon polyps Brother Problem (finding) cancer of the esophagus Brother Problem (finding) Cancer, throat Sister Problem (finding) Thyroid disorder Brother Problem psoriatic arthritis Brother Problem Rheumatoid arthritis Immunizations Vaccine Date Status Comments Pneumococcal conjugate vacci ne 20-valent (PCV20), polysaccharide [id number] conjugate, adjuvant, preservative free administered Note: [facility] bi-direct ional interface ; Source: Other Registry Influenza, split virus, trivalent, injectable, preservative free administered Note: [facility] bi-direct ional interface ; Source: Other Registry Afluria Qd administered Note: [facility] bi-directional interface ; Source: Other Registry Influenza, recombinant, quadrivalent, injectable, preservative free administered Note: [facility] bi-direct ional interface ; Source: Other Registry SARS-COV-2 (COVID-19) vaccin e, mRNA, spike protein, LNP, preservative free, 30 mcg/0.3mL dose administered Note: [facility] bi-direct ional interface ; Source: Other Registry Afluria Qd administered Note: [facility] bi-directional interface ; Source: Other Registry zoster vaccine recombinant administered N ote: [facility] bi-directional interface ; Source: Other Registry zoster vaccine recombinant administered N ote: [facility] bi-directional interface ; Source: Other Registry SARS-COV-2 (COVID-19) vaccin e, mRNA, spike protein, LNP, preservative free, 30 mcg/0.3mL dose administered Note: [facility] bi-direct ional interface ; Source: Other Registry SARS-COV-2 (COVID-19) vaccin e, mRNA, spike protein, LNP, preservative free, 30 mcg/0.3mL dose administered Note: [facility] bi-direct ional interface ; Source: Other Registry Afluria Qd administered Note: [facility] bi-directional interface ; Source: Other Registry Afluria Qd administered Note: [facility] bi-directional interface ; Source: Other Registry tetanus and diphtheria toxoi ds, adsorbed, preservative free, for adult use (2 Lf of tetanus toxoid and 2 Lf of diphtheria toxoid) administered Note: [facility] C bi- directional interface ; Source: Other Registry Influenza, split virus, trivalent, injectable, contains preservative administered Note: [facility] bi-direct ional interface ; Source: Other Registry Influenza, seasonal, injectable administe red Note: [facility] bi- directional interface ; Source: Other Registry tetanus toxoid, reduced diphtheria toxoid, and acellular pertussis vaccine, adsorbed administered Note: [facility] b i-directional interface ; Source: Other Registry Twinrix administered Note: [facility] bi-d irectional interface ; Source: Other Registry Twinrix administered Note: [facility] bi-d irectional interface ; Source: Other Registry Twinrix administered Note: [facility] bi-d irectional interface ; Source: Other Registry Payers Payer name Insurance type Covered constitution party ID Authoriza tiryan(s) [employer] [facility] [id number] Social History Type Description Quantity Date Captured Comments Sex Female Smoking Status No Information Chief Complaint And Reason For Visit No Information Reason For Referral Reason For Referral No Information Plan Of Treatment Date Type Action Status Referral Ordered: Ultrasound Liver Appointment date/timeframe: First Available [id number] Ordered: Colonoscopy Appointment date/timeframe: 04/02/2021 [id number] Ordered: CT Abdomen And Pelvis WITH Contrast Appointment date/timeframe: 03/01/2021 [id number] Ordered: Hepatic Function Panel Appointment date/timeframe: 03/01/2021 [id number] Ordered: Lipase Appointment date/timeframe: 03/01/2021 [id number] Ordered: CBC w/diff Appointment date/timeframe: 03/01/2021 [id number] Ordered: follow-up visit with GELACIO 3 Months Appointment date/timeframe: 3 Months ordered History Of Present Illness Encounter Date Complaint History Of Prese nt Illness GI Symptoms or Concerns This is a 64-year-old female that has a past medical history of obesity/overweight and was placed on Zepbound in July 2024 having lost 30 pounds, hyperlipidemia on rosuvastatin, cholecystectomy, reflux on esomeprazole 40 mg once daily, migraines who presents here for evaluation of intermittent abdominal pain that is positional in nature. She is being sent to us for consultation by Dr. Anastasiia Vann for the intermittent abdominal pain.Patient notes that she has had this intermittent abdominal pain for years. It occurred in [address] Tenorio at [facility]. He performed CT abdomen pelvis with IV contrast that was negative as well as ultrasound that was unremarkable. Lipase, hepatic function panel, CBC was unremarkable.Pain spontaneously subsided and as of a few months ago perhaps June/July 2024 she started noticing that the pain came back. This is again mainly positional in nature. She states with sitting especially long car rides the pain will occur in the epigastric region sometimes radiating to the back. With standing or laying down it will not occur. She feels like after eating it potentially will be better. She had CT abdomen pelvis with IV contrast and CBC, CMP, lipase in October 2024 that was negative. Otherwise patient [place] any nausea, vomiting, change in bowel habits having 1 bowel movement a day. Patient denies any consumption of any NSAIDs. She did begin Zepbound July 2024. Denies any GERD symptoms or dysphagia.Patient did try sucralfate as she had some leftover and did not notice any significant improvement.Of note she tells me that she had an EGD and colon in [address] Macias that was normal. I am able to see an upper endoscopy that she had in 2020 that showed normal esophagus, erythematous mucosa in the stomach and normal duodenum. Biopsies of the esophagus stomach and small bowel were all normal except for mild nonerosive reactive gastropathy in the stomach but no H. pylori. Colonoscopy was noted to have a good prep and a one 5 mm polyp in the cecum was removed. Colon was noted to be redundant. Ileal examination was not performed, but otherwise normal. 5 mm polyp was encountered to be an SSA Additional Narrative 10 pages of outside records reviewed GI Symptoms or Concerns This is a 60-year-old female who is seen today via virtual telehealth visit for upper abdominal discomfort and back pain. The patient is agreeable to doing this as a virtual visit and states that she is in a private place and alone for the interaction. The patient reports longstanding acid reflux, but then approximately a few years ago she began experiencing upper abdominal discomfort with back pain. This was not necessarily postprandial and in fact eating sometimes helped with her discomfort. She would also often notice the back pain when sitting as opposed to when standing or moving around. She previously had a component of discomfort around her waist, but had a cholecystectomy approximately 2 years ago, after which time that pain component resolved. She also previously noted improvement in upper abdominal symptoms with PPI therapy. However, this past summer after using ibuprofen for several weeks, she had a recurrence of her upper abdominal discomfort. At that time, she un Functional Status Date Functional Assessmen t No Information Instructions Date Instruction Additional Infor evens -- As we discussed I am reassured by the blood testing and the CT scan that you had done that was negative-- Your pain that is positional in nature is indicative of abdominal wall pain also known as anterior cutaneous nerve entrapment syndrome-- For abdominal wall pain the best treatment would be to place a lidocaine patch over the area where you are having pain specifically on car ride-- Safe to take Tylenol/acetaminophen 1000 mg every 6 hours as needed for longer car rides as well-- We will follow-up in 2 to 3 months to see how symptoms are doing and if they are improved on follow-up we can just follow-up as needed but if not we can consider further testing such as endoscopy, but at this time I would not say it is warranted-- If things were to change at any point in symptoms or worsen please do not hesitate to make an earlier clinic appointment-- At this point the likelihood that Zepbound is causing the pain is unlikely at it does not relate with eating Related to Upper abdominal pain Assessments Type Assessment Date No Information Patient Care Teams Name Effective Dates (start - stop) Status Members No Information
--- OUTSIDE RECORDS SUMMARY | 2024-12-03 05:54 | XMS_ITS | Continuity of Care Document ---
Author Organization [facility] Address [address] [address] [place] [address] Phone Care Team Providers Care General Lot Attendant Name Role Phone Sebastian Rodrigues MD Unavailable [...] Diagnoses Date Provider Providers Copied on Encounter [facility], [address] [address], [place], [place], [id number], [place] [phone] [facility] No Information 5 Bernardo Cortes. [address] [facility], [address], [id number], [place]. [phone] Offic Cons Low [facility], [address] [address], [place], [place], [id number], [place] tel:[phone] [facility] GI Symptoms or Concerns (chief complaint) Upper abdominal painAbdominal wall pain 5 Joseph Barker. [address] [facility], [address], [id number], [place]. tel:[phone] Referring Provider: Anastasiia Vann DO, [address] [place] [address], [address]. tel:[phone] [facility], [address] [address], [place], [place], [id number], [place] tel:[phone] [facility] No Information 5 Bernardo Cortes. [address] [facility], [facility] [address], [place], [id number], [place]. [phone] [facility], [address] [address], [place], [place], [id number], [place] tel:[phone] [facility] Hepatic cyst 1 Jona Harley. [address] [place] [address], [address], [id number], [place]. [phone] [facility], [address] [address], [place], [id number], [place] tel:[phone] [facility] Encounter for screening colonoscopy 1 Jona Harley. [address] [facility], [address], [id number], [place]. tel:[phone] New Level 4 [facility], [address] [address], [place], [id number], [place] tel:[phone] [facility] GI Symptoms or Concerns (chief complaint) Additional Narrative (chief complaint) Upper abdominal pain 1 Jona Harley. [address], [id number], [place]. tel:[phone] Referring Provider: Anastasiia Vann DO, [address] [place] [address], [address]. tel:[phone] [facility], [address] [address], [place], [id number], [place] tel:[phone] [facility] Procedures No Information 1 Syl Gutierrez. [address], [id number], [place]. tel:[phone] Family History Family Member Type Diagnosis Age [...] Pneumococcal conjugate vacci ne 20-valent (PCV20), polysaccharide [id number] conjugate, adjuvant, preservative free administered Note: [facility] [...] party ID Authoriza tiryan(s) [employer] [facility] [id number] Social History Type Description Quantity Date Captured Comments Sex Female Smoking Status No Information Chief Complaint And Reason For Visit No Information Reason For Referral Reason For Referral No Information Plan Of Treatment Date Type Action Status Referral Ordered: Ultrasound Liver Appointment date/timeframe: First Available [id number] Ordered: Colonoscopy Appointment date/timeframe: 04/02/2021 [id number] Ordered: CT Abdomen And Pelvis WITH Contrast Appointment date/timeframe: 03/01/2021 [id number] Ordered: Hepatic Function Panel Appointment date/timeframe: 03/01/2021 [id number] Ordered: Lipase Appointment date/timeframe: 03/01/2021 [id number] Ordered: CBC w/diff Appointment date/timeframe: 03/01/2021 [id number] Ordered: follow-up visit with GELACIO 3 Months [...] [address] Tenorio at [facility]. He performed CT abdomen pelvis with IV [...]
--- OUTSIDE RECORDS SUMMARY | 2025-04-08 22:23 | XMS_ITS | Clinical Summary ---
Author Organization [facility] Address [address] [place] [address] Care Team Providers Care Sanitation Worker Cleaning Equipment Name Role Phone Edwar Anastasiia Ann Primary Care Provider [phone] Allergies Active AllergyReactionsCriticalityNoted DateCommentsOxycodone-AcetaminophenRash, NyjioanKdsobk48/04/2018Hydrocodone-PplzjgnrezqcuIxqx16/19/2013 Medications MedicationSigDispense QuantityRefillsLast FilledStart DateEnd DateStatus azelaic acid (FINACEA) 15 % topical gel Once daily08/23/2022ctive metroNIDAZOLE 0.75 % cream Once daily08/23/2022ctive estradioL (Vagifem) 10 mcg tab vaginal tablet Indications:Vaginal atrophyInsert 1 Tablet (10 mcg) into the vagina every Monday and . 24 Tablet 5Active SUMAtriptan 50 mg tablet Indications:Migraine without status migrainosus, not intractable, unspecified migraine typeTAKE AT MINIMUM 2 HOURS APART. MAXIMUM DAILY DOSE: 200MG (4 TABLETS) PER 24 HOURS 9 Tablet 1105Active esomeprazole delayed release capsule 40 mg Indications:Gastric lhvfrm91nq twice daily x 1 month then 40mg daily 90 Capsule 5Active sucralfate 1 gram tablet Indications:Gastric refluxTake 1 Tablet (1 g) by mouth four times daily before meals and at bedtime. 120 Tablet 5Active rosuvastatin (CRESTOR) 20 mg tablet Indications:Familial hypercholesterolemiaTake 1 Tablet (20 mg) by mouth once daily. 90 Tablet 5Active tirzepatide (weight loss) (Zepbound) 5 mg/0.5 mL pen Indications:Hyperlipidemia, unspecified hyperlipidemia type,Obesity (BMI 30-39.9)Inject 5 mg subcutaneous once weekly. 6 mL 5Active Zepbound 5 mg/0.5 mL pen Indications:Hyperlipidemia, unspecified hyperlipidemia type,Obesity (BMI 30-39.9)INJECT 5MG UNDER THE SKIN ONCE WEEKLY 6 mL Discontinued(Reorder (E-cancel not sent)) Active Problems ProblemNoted DateDiagnosed DateHyperlipidemia, smzmdyxhhcp51/31/2022 Overview (11/14/2021): Declined statin 07/2021. Coronary calcium score 10/2021=zero. plan work on nonmedication factors. Colon polyp04/02/2021 Overview (04/02/2021): Colonoscopy 03/2021 SSA, repeat in 5 years, propofol Gastroesophageal reflux disease without lyneqwbjzwu19/25/2019 Overview (05/11/2018): EGD 04/2017 normal Screen for colon hgoxht5908/15/2012 Overview (08/15/2012): Colonoscopy 07/2012 normal repeat in 10 years Hallux gcwoklj1006/12/2012Tachycardia, vdvtynnbrvn25/11/2012 Overview (06/12/2012): Recent normal stress test, summer 2011. Kimberly Hong M.D. 06/12/2012 3:04 PM Migraine, unspecified, without mention of intractable migraine without mention of status avpixafuzwn46/26/2605Birvo91/26/2008 Resolved Problems ProblemNoted DateDiagnosed DateResolved DateChanging skin cybziv5907/17/2009 07/28/2010Dizziness and pihkadvbi94Palpitations06/12/2007 07/28/2010Excessive or frequent mowqzstvpfpd02 Encounters DateTypeDepartmentCare XkgbKvwpmxolfsr19/25/2025 1:45 PM CSTOrders Only [facility] [address] [place] [address] Lab, [place] [facility]03/11/20257565Cjegpm49/13/2025Telephone [facility] [address] [place] [phone] Ruben Mckeon MD Other01/16/2025Refill [facility] [address] [facility] [address] Anastasiia Vann, Refill Request (Zepbound)from Last 3 Months Immunizations ImmunizationAdministration DatesNext DueCOVID-19 vaccine (DAQRI 30mcg/0.3mL) MD AZV105/18/2020,07/28/2020,07/07/2020HepA-HepB (Twinrix) 10/01/2003,04/21/2003,03/18/2003Influenza RIV4 (Age 18+ Years) PRESERV FREE 01/31/2022Influenza, IIV3 (Age >=3 years)02/02/2010Influenza, MRN206, 01/02/2020,03/27/2018Pneumococcal Conj 20-valent (Prevnar 20)10/03/2024Td (Age >=7 Years)03/27/2018,02/23/1998Tdap06/12/2007Zoster (Shingrix-RZV, recombinant) 02/02/2021,11/20/2020 Family History Medical HistoryRelationNameCommentsHyperlipidemiaBrother 1Ron [facility] HypertensionBrother 1Ron [facility] CorporationEsophageal cancerBrother 2JimHyperlipidemia Brother 2JimCoronary artery diseaseFatherDonald [facility] [place] [facility], CABG at 56, heart transplant at age 61HyperlipidemiaFatherDonald [facility] CorporationCancer-breast Maternal GrandmotherMary pofahlHyperlipidemiaSister 1PamOtherSister 1Pammultiple colon polypsHyperlipidemiaSister 2CindyCancer-colonNo Family History Cancer-ovarianNo Family HistoryRelationNameStatusCommentsBrother 1Ron Bongers Brother 2JimAliveFatherDonald BongersDeceasedMVAMaternal GrandmotherMary noris MotherDeceasedMVASister 1PamSister 2CindyAliveSon 1JaredAliveSon 2JacobAlive Social History Tobacco UseTypesPacks/DayYears UsedDateSmoking Tobacco: NeverSmokeless Tobacco: Never Tobacco Cessation:Counseling Given: Not Answered Alcohol UseStandard Drinks/WeekCommentsYes4 (1 standard drink = 0.6 oz pure alcohol)3 times weekly a few drinks at a sittingPHQ-2AnswerDate RecordedPHQ-2 TOTAL [id number] ConnectionsAnswerDate RecordedDo you often feel lonely or isolated from those around you?Financial Resource Strain AnswerDate RecordedDifficulty of Paying Living Pshxqvjv187/19/2025Difficulty of Paying Living ExpensesNot on file10/03/2024Food InsecurityAnswerDate RecordedDo you worry your food will run out before you are able to buy more? Transportation NeedsAnswerDate RecordedDoes lack of transportation keep you from medical appointments?Does lack of transportation keep you from work, meetings or getting things that you need?Housing StabilityAnswerDate RecordedWhat is your housing situation today?UtilitiesAnswerDate RecordedDo you have trouble paying for utilities (for example, heat, electricity, water, phone)?CommentsNoSex and Gender InformationValueDate RecordedSex Assigned at BirthNot on fileLegal SexFemale 04/30/2012 6:20 AM CSTGender IdentityNot on fileSexual OrientationNot on file Obstetrics History GravidaParaTermPretermABIABSABEctopicMultipleLivingLive [id number] OutcomeGATotal LaborLabor/2nd/8mwJymbvkInlUhxtAekxMFBVuxN7I4IntjNgavWubkOlltkr ParaLiving Last Filed Vital Signs Vital SignReadingTime TakenCommentsBlood Khociwcr265/7607 7:31 AM CDT Zmqcc0508 7:31 AM WCHTxpdjauyipm32.8 ??C (98.3 ??F)07/30/2021 9:33 AM CDTRespiratory Eodm106207/30/2021 9:33 AM CDTOxygen Svnawavpcb745%11/05/2024 7:31 AM CDTInhaled Oxygen Concentration--Cjxcch83.1 kg (147 lb 14.4 oz)11/05/2024 7:31 AM NAVZbvzbw672 cm (5' 6.93)10/03/2024 10:27 AM CDTBody Mass Index23.21 10/03/2024 10:27 AM CDT Plan of Treatment Health MaintenanceDue DateLast DoneCommentsCOVID-19 vaccine series ( season), 07/28/2020, 07/07/2020Influenza Vaccine (#1) , 02/02/2021, 01/02/2020, Additional history existsBMI (ht and wt on same day) for age 18+, 06/17/2024, 09/26/2023, Additional history existsDepression screening for age 12+, 09/26/2023, 08/24/2022, Additional history existsMammogram for age 40-75 , 09/26/2023, 08/24/2022, Additional history exists Colonoscopy through age 7512/6106/02/2020, 04/01/2021, 08/15/2012, Additional history existsPap test for age 21-, 08/24/2022, 03/27/2018, Additional history existsTetanus , 06/12/2007, 02/23/1998Lipids for age 45-75, 10/03/2024, 06/17/2024, Additional history existsRSV vaccine for adults or (1 - 1- dose 75+ series)2036Hepatitis B series for 19+Xkamkhbcn52/16/2004, 04/21/2003, 03/18/2003Hepatitis C screening for age 18-68Ykovqptyc07/09/2021 Zoster (shingles) series for age 50+Ftsmjupca48/19/2021, 11/20/2020HIV for age 15-80Dmekhfkuu79/09/2023neumococcal series for age 50+Gylwuhtfw76/19/2025 Procedures Procedure NamePriorityDate/TimeAssociated DiagnosisCommentsLIPID PANEL W REFLEX MEASURED KABUocwasc97/25/2025 1:44 PM CONTROL ENGINEER Familial hypercholesterolemia Hyperlipidemia, unspecified hyperlipidemia type XR MAMMO HOMER BILAT DSNSJKGqlwvkp64/19/2025 10:06 AM CDT Encounter for screening mammogram for malignant neoplasm of breast HPV HIGH ZVMSYjxkerz99/10/2023 8:51 AM CDT Cervical cancer screening LC HIV-1/O/2, 4TH ZMDEKQOCIDVeyagly77/09/2023 7:25 AM CDT Screening for HIV (human immunodeficiency virus) QOKKCEMPKFJ72/16/2021 8:19 AM CONTROL ENGINEER ANTI EZDFjyhlww74/09/2021 8:37 AM CONTROL ENGINEER Need for hepatitis C screening test from Last 3 Months or Most Recently Relevant to Health Maintenance Results * LIPID PANEL W REFLEX MEASURED LDL (03/11/2025 1:44 PM CONTROL ENGINEER)ComponentValueRef RangeTest MethodAnalysis TimePerformed AtPathologist SignatureCHOLESTEROL, LCUPQ065<200 mg/dL03/12/2025 4:48 AM CSTQUEST DLNBRGCCOTHMOIUTFDLIPVXN216<150 mg/dL03/12/2025 4:48 AM CSTQUEST DIAGNOSTICSHDL CPVWKLAXYNG61> OR = 50 mg/dL 03/12/2025 4:48 AM CSTQUEST DIAGNOSTICSNON HDL MCJVIJXGOLA486<130 mg/dL (calc) 03/12/2025 4:48 AM CSTQUEST DIAGNOSTICSComment: For patients with diabetes plus 1 major ASCVD risk factor, treating to a non-HDL-C goal of <100 mg/dL (LDL-C of <70 mg/dL) is considered a therapeutic option. CHOL/HDLC RATIO2.6<5.0 (calc)03/12/2025 4:48 AM CSTQUEST DIAGNOSTICS LDL-TEDZELJWUCV10py/dL (calc)03/12/2025 4:48 AM CSTQUEST DIAGNOSTICSComment: Reference range: <100 Desirable range <100 mg/dL for primary prevention; <70 mg/dL for patients with CHD or diabetic patients with > or = 2 CHD risk factors. LDL-C is now calculated using the Carmen calculation, which is a validated novel method providing better accuracy than the Friedewald equation in the estimation of LDL-C. Rudy SS et al. JODY. 2013;310(32): 5537-4653 (http://education.MySQUAR.MedSolutions/faq/EQX998) Specimen (Source)Anatomical Location / LateralityCollection Method / Volume Collection TimeReceived TimeBloodBLOOD SPECIMEN / UnknownQuest Collect / Unknown 03/11/2025 1:44 PM CST03/11/2025 1:44 PM CONTROL ENGINEER Narrative Authorizing ProviderResult TypeResult StatusStevthomas Mckeon MDCHEMISTRY Final ResultPerforming OrganizationAddressCity/State/ZIP CodePhone Number [employer] [address] [phone], * XR MAMMO HOMER BILAT SCREEN (10/03/2024 10:06 AM CDT)Anatomical Region LateralityModalityBREASTS, Breast Left, Breast RightBilateralMammography Specimen (Source)Anatomical Location / LateralityCollection Method / Volume Collection TimeReceived Time Impressions 10/03/2024 2:32 PM CDT There is no radiographic evidence for malignancy. Recommend annual mammograms. MAMMOGRAM ASSESSMENT: ??ACR 1 Negative PATIENTS: You will also receive a letter with your examination results in an easy to read format. ??If you have questions about your results, please contact your referring provider. Narrative 10/03/2024 2:32 PM CDT For Patients: As a result of the Century Cures Act, medical imaging exams and procedure reports are released immediately into your electronic medical record. You may view this report before your referring provider. If you have questions, please contact your health care provider. XR MAMMO HOMER BILAT SCREEN [[id number]] CLINICAL HISTORY: ??This is an asymptomatic 64 y.o. patient. INDICATION FOR EXAM: Mammogram Screening. TECHNIQUE: CC and MLO views were obtained. ??This study was evaluated with the assistance of Computer-Aided Detection. Breast Tomosynthesis was used in interpretation. COMPARISON FILM: Yes 09/26/23 [facility] 08/24/22 [facility] FINDINGS: ??The breasts are heterogeneously dense, which may obscure small masses. There are no dominant masses, suspicious micro calcifications or areas of architectural distortion. Authorizing ProviderResult TypeResult StatusHeather Jo Vann [facility] HOSPITALAMMOFinal Result * HPV HIGH RISK (08/24/2022 8:51 AM CDT)ComponentValueRef RangeTest Method Analysis TimePerformed AtPathologist SignatureTYPE 16NegativeNegative 08/30/2022 10:21 AM [facility]-CENTRAL LABORATORYTYPE 18 UatoigfpMoamahss92/16/2023 10:21 AM [facility] LABORATORYOTHER HIGH RISK ZYKIHNkkqdcfmGzbffiwt04/16/2023 10:21 AM [facility]TRAL LABORATORYSpecimen (Source)Anatomical Location / LateralityCollection Method / VolumeCollection TimeReceived TimeOther (Cervical)Non-Blood / Jsllfgx8308/24/2022 8:51 AM CDT08/26/2022 4:41 PM CDT Narrative [facility] - 08/30/2022 10:21 AM CDT HPV types 16, 18, 31, 33, 35, 39, 45, 51, 52, 56, 58, 59, 66 and 68 DNA were undetectable or below the pre-set threshold. Methodology: Renetta Jocelynn 4800 HPV Test Authorizing ProviderResult TypeResult StatusHeather Jo Vann [facility] HOSPITALICROBIOLOGY Final ResultPerforming OrganizationAddressCity/State/ZIP CodePhone Number [facility] [address] [place] [address], [place] * LC HIV-1/O/2, 4TH GENERATION (08/23/2022 7:25 AM CDT)ComponentValueRef Range Test MethodAnalysis TimePerformed AtPathologist SignatureHIV Scr 4th GenNon ReactiveNon Ljzubxxi06/12/2023 4:08 AM CDTLABCORP [facility] ([facility])Comment: HIV Negative HIV-1/HIV-2 antibodies and HIV-1 p24 antigen were NOT detected. There is no laboratory evidence of HIV infection. Specimen (Source)Anatomical Location / LateralityCollection Method / Volume Collection TimeReceived TimeBloodBLOOD SPECIMEN / UnknownVenipuncture / Unknown 08/23/2022 7:25 AM CDT08/23/2022 7:29 AM CDT Narrative [facility] ([facility]) - 08/26/2022 4:08 AM CDT Performed at: [address] [facility] [place], [place] [id number] Sweatband Maker: Gagan Hicks MD, Phone: ??[phone] Authorizing ProviderResult TypeResult StatusHeather Jo Vann DOLABORATORYFinal ResultPerforming OrganizationAddressCity/State/ZIP CodePhone Number [facility] ([facility]) [facility] [place] [address], * COLONOSCOPY (04/01/2021 8:19 AM CONTROL ENGINEER)Specimen (Source)Anatomical Location / LateralityCollection Method / VolumeCollection TimeReceived Time04/01/2021 8:19 AM CONTROL ENGINEER Narrative Transcriptions Rudy Macias MD - 04/01/2021 9:26 AM CST Patient Name: Trudi Snider Procedure Date: 04/01/2021 Gender: Female Date of : 1960 Admit Type: Outpatient Procedure: Colonoscopy Proceduralist: Rudy Macias MD , Annelise Verdugo, RN(Nurse) Indications/Pre-Op Diagnosis: Screening for colorectal malignant [...] 8:19 AM Procedure Code(s): --- Professional --- 94245, Colonoscopy, flexible; with removalof tumor(s), polyp(s), or other lesion(s) bysnare technique Diagnosis Code(s): --- Professional --- Z12.11, Encounter for screening formalignant neoplasm of colon K63.5, Polyp of colon K64.4, Residual hemorrhoidal skin tags Q43.8, Other specified congenitalmalformations of intestine CPT copyright 2020 [employer]. All rights reserved. The codes documented in this report are preliminary and upon administrative resident reviewmay be revised to meet current compliance requirements. Scope In: 8:48:26 AM Scope Withdrawal Time 0 hours 8 minutes 59 seconds Scope Out: 9:16:45 AM Authorizing ProviderResult TypeResult StatusMaraisha Macias MDPROCEDURE ORD Final Result * ANTI HCV (06/23/2020 8:37 AM CONTROL ENGINEER)ComponentValueRef RangeTest MethodAnalysis TimePerformed AtPathologist SignatureHEPATITIS C ANTIBODYNon-Reactive Non-Pjzmgoja49/09/2021 4:05 PM [facility]STMEM[facility] [place] [facility] Comment:Antibodies to HCV not detected; does not exclude the possibility of exposure to HCV.Specimen (Source)Anatomical Location / LateralityCollection Method / VolumeCollection TimeReceived TimeBloodBLOOD SPECIMEN / Unknown Venipuncture / Ucoraaw6906/23/2020 8:37 AM CST06/23/2020 8:37 AM CONTROL ENGINEER Narrative Authorizing ProviderResult TypeResult StatusHeaneetu ARIZMENDI OUTSFinal ResultPerforming OrganizationAddressCity/State/ZIP CodePhone Number [facility] [address] [place] [address], [place] from Last 3 Months or Most Recently Relevant to Health Maintenance Insurance * Guarantor: Trudi Snider TypeRelation to PatientDate of BirthPhone Billing AddressPersonal/WlahkcUapk04/06/1961 [address] [place] [id number] * Guarantor: Trudi Snider TypeRelation to PatientDate of BirthPhone Billing WonzqozPjalhcEhcs58/06/1961 [address] [place] [address] Care Teams Team MemberRelationshipSpecialtyStart DateEnd Date Anastasiia Vann DO [address] [id number] PCP - GeneralFamily Wlfesyhy43/11/15
[2025-04-08 22:27] VITALS: BP 115/76; PULSE 87; RESP 18; TEMP 36.8; O2SAT 100; BMI 26.0
--- NOTE | 2025-04-08 22:36 | CRLHL7_ITS ---
For Patients: As a result of the Century Cures Act, medical imaging exams and procedure reports are released immediately into your electronic medical record. You may view this report before your referring provider. If you have questions, please contact your health care provider. Indication: Fall on left wrist, pain. Technique: Left wrist 3 views. Comparison: Left hand radiographs from the same day. Findings: Bones: Questionable nondisplaced fracture of the radial styloid. No other evidence for fracture. Alignment is normal. The scaphoid appears intact. No aggressive osseous lesion. Joint spaces: Moderate degenerative changes of the 1st carpometacarpal joint. No erosive changes. Soft tissues: Unremarkable. Impression: Questionable nondisplaced fracture of the radial styloid. If there is focal tenderness at this location, recommend CT for further evaluation. Dictated by Davon Duval MD @ 04/08/2025 11:36:11 PM (Electronically Signed)
--- NOTE | 2025-04-08 22:36 | CRLHL7_ITS ---
For Patients: As a result of the Century Cures Act, medical imaging exams and procedure reports are released immediately into your electronic medical record. You may view this report before your referring provider. If you have questions, please contact your health care provider. Indication: Fall on left wrist, pain. Technique: Left hand 3 views. Comparison: Left wrist radiographs from the same day. Findings: Bones: Alignment is normal. No acute fracture or suspicious bone lesion. Joint spaces: Fhek-ub-ubvbrqdz degenerative changes throughout the interphalangeal joints, greatest at the index finger distal interphalangeal joint. No erosive changes. Moderate degenerative changes of the 1st carpometacarpal joint Soft tissues: Unremarkable. Impression: No evidence of an acute bony abnormality. Dictated by Davon Duval MD @ 04/08/2025 11:34:15 PM (Electronically Signed)
--- OUTSIDE RECORDS SUMMARY | 2025-04-09 01:25 | XMS_ITS | Clinical Summary ---
Author Organization [facility] Address [address] [place] [address] Care Team Providers Care Trawl Net Maker Name Role Phone Edwar Anastasiia Ann Primary Care Provider [phone] Allergies Active AllergyReactionsCriticalityNoted DateCommentsOxycodone-AcetaminophenRash, XrbhhkaVoaxgy44/04/2018Hydrocodone-XdzrcwznyjumiBmko07/19/2013 Medications MedicationSigDispense QuantityRefillsLast FilledStart DateEnd DateStatus azelaic [...] esomeprazole delayed release capsule 40 mg Indications:Gastric dxxgri43ug twice daily x 1 month then 40mg [...] not sent)) Active Problems ProblemNoted DateDiagnosed DateHyperlipidemia, wnjnxynkvse01/31/2022 Overview (11/14/2021): Declined statin 07/2021. Coronary calcium score 10/2021=zero. plan work on nonmedication factors. Colon polyp04/02/2021 Overview (04/02/2021): Colonoscopy 03/2021 SSA, repeat in 5 years, propofol Gastroesophageal reflux disease without beqmtapnnmj15/25/2019 Overview (05/11/2018): EGD 04/2017 normal Screen for colon drqwxh5008/15/2012 Overview (08/15/2012): Colonoscopy 07/2012 normal repeat in 10 years Hallux twlxace3306/12/2012Tachycardia, zocksfhbocn80/11/2012 Overview (06/12/2012): Recent normal stress test, summer 2011. Kimberly Hong M.D. 06/12/2012 3:04 PM Migraine, unspecified, without mention of intractable migraine without mention of status xclfdkhoxju77/26/4878Jhzmd69/26/2008 Resolved Problems ProblemNoted DateDiagnosed DateResolved DateChanging skin oymdzg9807/17/2009 07/28/2010Dizziness and lfkkvtfen67Palpitations06/12/2007 07/28/2010Excessive or frequent hlgoilzgtbce67 Encounters DateTypeDepartmentCare BaqrCfmvgegzbbr12/25/2025 1:45 PM CSTOrders Only [facility] [address] [place] [address] Lab, [place] Lab03/11/20254992Auyiri29/13/2025Telephone [facility] [address] [place] [phone] Ruben Mckeon MD Other01/16/2025Refill [facility] [address] [facility] [address] Anastasiia Vann, Refill Request (Zepbound)from Last 3 Months Immunizations ImmunizationAdministration DatesNext DueCOVID-19 vaccine (Opiatalk 30mcg/0.3mL) MD AZV105/18/2020,07/28/2020,07/07/2020HepA-HepB (Twinrix) 10/01/2003,04/21/2003,03/18/2003Influenza RIV4 (Age 18+ Years) PRESERV FREE 01/31/2022Influenza, IIV3 (Age >=3 years)02/02/2010Influenza, XXZ055, 01/02/2020,03/27/2018Pneumococcal Conj 20-valent (Prevnar 20)10/03/2024Td (Age >=7 Years)03/27/2018,02/23/1998Tdap06/12/2007Zoster (Shingrix-RZV, recombinant) 02/02/2021,11/20/2020 Family History Medical HistoryRelationNameCommentsHyperlipidemiaBrother 1[facility] HypertensionBrother 1[facility] HospitalEsophageal cancerBrother 2JimHyperlipidemia Brother 2JimCoronary artery diseaseFatherDonald [facility] [place] [facility], CABG at 55, heart transplant at age 60HyperlipidemiaFatherDonald [facility] HospitalCancer-breast Maternal GrandmotherMary pofahlHyperlipidemiaSister 1PamOtherSister 1Pammultiple colon polypsHyperlipidemiaSister 2CindyCancer-colonNo Family History Cancer-ovarianNo Family HistoryRelationNameStatusCommentsBrother 1Ron Bongers Brother 2JimAliveFatherDonald BongersDeceasedMVAMaternal GrandmotherMary noris MotherDeceasedMVASister 1PamSister 2CindyAliveSon 1JaredAliveSon 2JacobAlive Social History Tobacco UseTypesPacks/DayYears UsedDateSmoking Tobacco: NeverSmokeless Tobacco: Never Tobacco Cessation:Counseling Given: Not Answered Alcohol UseStandard Drinks/WeekCommentsYes4 (1 standard drink = 0.6 oz pure alcohol)3 times weekly a few drinks at a sittingPHQ-2AnswerDate RecordedPHQ-2 TOTAL NOUZO315Social ConnectionsAnswerDate RecordedDo you often feel lonely or isolated from those around you?Financial Resource Strain AnswerDate RecordedDifficulty of Paying Living Xddnsjjx753/19/2025Difficulty of Paying Living ExpensesNot on file10/03/2024Food InsecurityAnswerDate [...] fileSexual OrientationNot on file Obstetrics History GravidaParaTermPretermABIABSABEctopicMultipleLivingLive [id number] OutcomeGATotal LaborLabor/2nd/5izZzzzswHhuHjwzTubuKYGMdvO5O7OthuSkpnNnbnLlqdkh ParaLiving Last Filed Vital Signs Vital SignReadingTime TakenCommentsBlood Lqltulfh587/7607 7:31 AM CDT Ttasq2494 7:31 AM ZQXXshebtttvya61.8 ??C (98.3 ??F)07/30/2021 9:33 AM CDTRespiratory Tnzk366107/30/2021 9:33 AM CDTOxygen Cdnxuttwkq666%11/05/2024 7:31 AM CDTInhaled Oxygen Concentration--Kzpriy21.1 kg (147 lb 14.4 oz)11/05/2024 7:31 AM AVXEjudij598 cm (5' 6.93)10/03/2024 10:27 AM CDTBody Mass [...] age 21-, 08/24/2022, 03/27/2018, Additional history existsTetanus gogycox57, 06/12/2007, 02/23/1998Lipids for age 45-75, 10/03/2024, 06/17/2024, Additional history existsRSV vaccine for adults or (1 - 1- dose 75+ series)2036Hepatitis B series for 19+Lyhxfnpgq93/16/2004, 04/21/2003, 03/18/2003Hepatitis C screening for age 18-27Etgjnwaym88/09/2021 Zoster (shingles) series for age 50+Ydkfmxwhe37/19/2021, 11/20/2020HIV for age 15-21Algdcycaw08/09/2023neumococcal series for age 50+Xecntmiif31/19/2025 Procedures Procedure NamePriorityDate/TimeAssociated DiagnosisCommentsLIPID PANEL W REFLEX MEASURED PFOOkvielw78/25/2025 1:44 PM FLUX CORE WELDER Familial hypercholesterolemia Hyperlipidemia, unspecified hyperlipidemia type XR MAMMO HOMER BILAT TWVNCHUgmsmet29/19/2025 10:06 AM CDT Encounter for screening mammogram for malignant neoplasm of breast HPV HIGH BGDKSrxqdmz98/10/2023 8:51 AM CDT Cervical cancer screening LC HIV-1/O/2, 4TH UOJAWRPEYMDcuafpk07/09/2023 7:25 AM CDT Screening for HIV (human immunodeficiency virus) CVWCBPSRITB71/16/2021 8:19 AM FLUX CORE WELDER ANTI LMRFxxhlrf66/09/2021 8:37 AM FLUX CORE WELDER Need for hepatitis C screening test from Last 3 Months or Most Recently Relevant to Health Maintenance Results * LIPID PANEL W REFLEX MEASURED LDL (03/11/2025 1:44 PM FLUX CORE WELDER)ComponentValueRef RangeTest MethodAnalysis TimePerformed AtPathologist SignatureCHOLESTEROL, OPFQY946<200 mg/dL03/12/2025 4:48 AM CSTQUEST KVSCJYZRIECLDHZKENHSCBVZ091<150 mg/dL03/12/2025 4:48 AM CSTQUEST DIAGNOSTICSHDL XDRVSFOYUMB81> OR = 50 mg/dL 03/12/2025 4:48 AM CSTQUEST DIAGNOSTICSNON HDL WNHUANVJVTX756<130 mg/dL (calc) 03/12/2025 4:48 AM CSTQUEST DIAGNOSTICSComment: For patients with diabetes plus 1 major ASCVD risk factor, treating to a non-HDL-C goal of <100 mg/dL (LDL-C of <70 mg/dL) is considered a therapeutic option. CHOL/HDLC RATIO2.6<5.0 (calc)03/12/2025 4:48 AM CSTQUEST DIAGNOSTICS LDL-COWRFGHBZUY51is/dL (calc)03/12/2025 4:48 AM CSTQUEST DIAGNOSTICSComment: Reference range: <100 Desirable range <100 mg/dL for primary prevention; <70 mg/dL for patients with CHD or diabetic patients with > or = 2 CHD risk factors. LDL-C is now calculated using the Carmen calculation, which is a validated novel method providing better accuracy than the Friedewald equation in the estimation of LDL-C. Rudy SS et al. JODY. 2013;310(40): 3444-2419 (http://education.[employer].SweetLabs/faq/BMI444) Specimen (Source)Anatomical Location / LateralityCollection Method / Volume Collection TimeReceived TimeBloodBLOOD SPECIMEN / UnknownQuest Collect / Unknown 03/11/2025 1:44 PM CST03/11/2025 1:44 PM FLUX CORE WELDER Narrative Authorizing ProviderResult TypeResult StatusStevthomas Mckeon MDCHEMISTRY Final ResultPerforming OrganizationAddressCity/State/ZIP CodePhone Number [email or web address] [address] [phone], * XR MAMMO HOMER BILAT SCREEN (10/03/2024 [...] care provider. XR MAMMO HOMER BILAT SCREEN [[id number]] CLINICAL HISTORY: ??This is an asymptomatic 64 y.o. patient. INDICATION FOR EXAM: Mammogram Screening. TECHNIQUE: CC and MLO views were obtained. ??This study was evaluated with the assistance of Computer-Aided Detection. Breast Tomosynthesis was used in interpretation. COMPARISON FILM: Yes 09/26/23 [facility] 08/24/22 [facility] FINDINGS: ??The breasts are heterogeneously dense, which may obscure small masses. There are no dominant masses, suspicious micro calcifications or areas of architectural distortion. Authorizing ProviderResult TypeResult StatusHeather Jo Vann [facility] MED[facility] CENTERAMMOFinal Result * HPV HIGH RISK (08/24/2022 8:51 AM CDT)ComponentValueRef RangeTest Method Analysis TimePerformed AtPathologist SignatureTYPE 16NegativeNegative 08/30/2022 10:21 AM [facility]-CENTRAL LABORATORYTYPE 18 WxeqmoqkOvhcgipf13/16/2023 10:21 AM [facility]ORYOTHER HIGH RISK OZESTYbzlzrlvJglwpunh17/16/2023 10:21 AM [facility] LABORATORYSpecimen (Source)Anatomical Location / LateralityCollection Method / VolumeCollection TimeReceived TimeOther (Cervical)Non-Blood / Yfelwjy2608/24/2022 8:51 AM CDT08/26/2022 4:41 PM CDT Narrative [facility] - 08/30/2022 10:21 AM CDT HPV types 16, 18, 31, 33, 35, 39, 45, 51, 52, 56, 58, 59, 66 and 68 DNA were undetectable or below the pre-set threshold. Methodology: Renetta Jocelynn 4800 HPV Test Authorizing ProviderResult TypeResult StatusHeather Jo Vann [facility] CENTERICROBIOLOGY Final ResultPerforming OrganizationAddressCity/State/ZIP CodePhone Number [facility] [address] [place] [address], [place] * LC HIV-1/O/2, 4TH GENERATION (08/23/2022 7:25 AM CDT)ComponentValueRef Range Test MethodAnalysis TimePerformed AtPathologist SignatureHIV Scr 4th GenNon ReactiveNon Erqjrfig31/12/2023 4:08 AM CDTLABCORP [facility] ([facility])Comment: HIV Negative HIV-1/HIV-2 antibodies and HIV-1 p24 antigen were NOT detected. There is no laboratory evidence of HIV infection. Specimen (Source)Anatomical Location / LateralityCollection Method / Volume Collection TimeReceived TimeBloodBLOOD SPECIMEN / UnknownVenipuncture / Unknown 08/23/2022 7:25 AM CDT08/23/2022 7:29 AM CDT Narrative [facility] ([facility]) - 08/26/2022 4:08 AM CDT Performed at: [facility] Centerand [place], [place] [id number] Searchlight Operator: Gagan Hicks MD, Phone: ??[phone] Authorizing ProviderResult TypeResult StatusHeather Jo Vann DOLABORATORYFinal ResultPerforming OrganizationAddressCity/State/ZIP CodePhone Number [facility] ([facility]) [facility] [place] [address], * COLONOSCOPY (04/01/2021 8:19 AM FLUX CORE WELDER)Specimen (Source)Anatomical Location / LateralityCollection Method / VolumeCollection TimeReceived Time04/01/2021 8:19 AM FLUX CORE WELDER Narrative Transcriptions Rudy Macias MD - 04/01/2021 [...] 8:19 AM Procedure Code(s): --- Professional --- 86785, Colonoscopy, flexible; with removalof tumor(s), polyp(s), or other lesion(s) bysnare technique Diagnosis Code(s): --- Professional --- Z12.11, Encounter for screening formalignant neoplasm of colon K63.5, Polyp of colon K64.4, Residual hemorrhoidal skin tags Q43.8, Other specified congenitalmalformations of intestine CPT copyright 2020 [employer]. All rights reserved. The codes documented in this report are preliminary and upon insurance coder reviewmay be revised to meet current compliance requirements. Scope In: 8:48:26 AM Scope Withdrawal Time 0 hours 8 minutes 59 seconds Scope Out: 9:16:45 AM Authorizing ProviderResult TypeResult StatusMaraisha Macias MDPROCEDURE ORD Final Result * ANTI HCV (06/23/2020 8:37 AM FLUX CORE WELDER)ComponentValueRef RangeTest MethodAnalysis TimePerformed AtPathologist SignatureHEPATITIS C ANTIBODYNon-Reactive Non-Bjzelkjz28/09/2021 4:05 PM [facility]ST[facility] Comment:Antibodies to HCV not detected; does not exclude the possibility of exposure to HCV.Specimen (Source)Anatomical Location / LateralityCollection Method / VolumeCollection TimeReceived TimeBloodBLOOD SPECIMEN / Unknown Venipuncture / Giqpzqm6106/23/2020 8:37 AM CST06/23/2020 8:37 AM FLUX CORE WELDER Narrative Authorizing ProviderResult TypeResult StatusHeaneetu ARIZMENDI OUTSFinal ResultPerforming OrganizationAddressCity/State/ZIP CodePhone Number [facility] [address] [place] [address], [place] from Last 3 Months or Most Recently Relevant to Health Maintenance Insurance * Guarantor: Trudi Snider TypeRelation to PatientDate of BirthPhone Billing AddressPersonal/WacpmeQgtf19/06/1961 [id number] [place] [id number] * Guarantor: Trudi Snider TypeRelation to PatientDate of BirthPhone Billing FacwtvdUfvrqcPxmw35/06/1961 [address] [place] [id number] Care Teams Team MemberRelationshipSpecialtyStart DateEnd Date Anastasiia Vann DO [address] [id number] PCP - GeneralFamily Jfckrxhl55/11/15
[2025-04-09 01:37] VITALS: BP 118/74; PULSE 80; RESP 18; TEMP 36.8; O2SAT 100
--- NOTE | 2025-04-09 04:54 | ED.GENADULT ---
HPI - General Adult General Chief complaint: Extremity Pain/Injury, Upper Stated complaint: left wrist injury Time Seen by Provider: 04/09/25 01:26 Source: patient Mode of arrival: ambulatory Limitations: no limitations History of Present Illness HPI narrative: 64-year-old female reports that she slipped and fell on the ice shortly prior to arrival has pain at the distal radius area. She can still move the wrist, hands, elbow without difficulty. Notes no pain in any other areas. Not anticoagulated. Unfortunately was incredibly busy and we had very high q.d. of other patients prior to being able to assess this patient and she did have about a 3 hour wait. She took some Tylenol prior to arrival but still has pain. She reports that she does not tolerate ibuprofen well because of stomach discomfort but does not have a history of GI bleeds per her report. Notes no other areas of injury today. Pain is achy and constant, worse with movement of the thumb or wrist. Reports a fairly benign past medical history. Uses omeprazole, rosuvastatin. Allergy to oxycodone causing a rash. Nonsmoker. ROS notable for the musculoskeletal symptoms as above only. No other skin, musculoskeletal or neurological changes in the hand or arm. Related Data Home Medications ?Medication ?Instructions ?Recorded ?Confirmed esomeprazole magnesium 40 mg 40 mg PO DAILY 07/17/24 04/08/25 capsule,delayed release estradiol 10 mcg vaginal tablet 10 mcg vaginal 2XW 07/17/24 04/08/25 (Vagifem) rosuvastatin 40 mg tablet 40 mg PO DAILY 07/17/24 04/08/25 sumatriptan succinate 50 mg tablet PO 07/17/24 07/23/24 Allergies Allergy/AdvReac Type Severity Reaction Status Date / Time oxycodone AdvReac Intermediate Rash Verified 04/08/25 22:31 PFSH PFS Social History Smoking Status: Never smoker Second hand tobacco smoke exposure: No How often do you have a drink containing alcohol: 2-4 times a month AUDIT-C Alcohol total score: 2 Non-prescribed substance use: denies use Exam Const: Vital Signs, click to edit/add: Vital Signs - 24 hr 04/08/25 22:27 04/09/25 01:37 Temperature 98.3 F 98.3 F Pulse Rate [Right Pulse Oximeter] 87 80 Respiratory Rate 18 18 Blood Pressure [Ri t Upper Arm] 115/76 118/74 Pulse Oximetry 100 100 Oxygen Delivery Me thod Room Air Room Air Documenting provider has reviewed patient's vital signs: yes Common normals: no apparent distress General appearance: cooperative and well kempt HENMT: Common normals: normocephalic Head and scalp: normocephalic Face and sinus: normal facial exam Eye: General eye: normal appearance of both eyes Resp: Common normals: normal respiratory effort Effort & inspection: able to speak in complete sentences Cardio: Other: Regular rate and rhythm palpated through left radial pulse. Normal capillary refill in the fingers Extremity: Other: Right hand and wrist appear grossly normal with no deformity. The left wrist has mild swelling at the distal left radius area. Normal range of motion of thumb, fingers, hand and wrist otherwise. But does have tenderness in the area of swelling. No crepitus or deformity appreciated. Normal range of motion and strength of the elbow. Psych: Common normals: speech normal Appearance: well kempt Attitude: engaged Activity/motor behavior: appropriate eye contact Speech: normal speech Attention/concentration: attention grossly intact Memory/cognition: memory grossly intact Insight: insight good Judgement: judgment good Skin: Common normals: no rashes or lesions noted General skin exam: no rashes or lesions noted Course Course ED Course: 64-year-old female with pain and swelling at the distal radius of left side following a mechanical type fall. X-rays performed prior to my arrival for this shift. This does show a nondisplaced fracture at the distal radial styloid. I counseled patient on this at the time of initial interview. There does not seem to be any evidence of neurovascular compromise, tendon rupture or other injury. She does not have any significant deformity or swelling and pain is well controlled on the Tylenol. We discussed casting versus splinting. She would prefer the removable splint and I think it is very reasonable based on her lifestyle, risk factors and overall mild appearance of the fracture. She will wear this for the next couple of weeks and then follow up with Orthopedics for final is a fernandez of plan. Will likely need a few more weeks in the splint. She had good immobilization with this device. Counseled on Tylenol as needed for pain. I do think it would be safe for her to add in ibuprofen if needed but try to avoid due to previous side effects. If he does have to take it, take with food and continue her omeprazole. We also discussed dental sleep aid like melatonin, Benadryl, Unisom etc. that may be helpful if her pain is bothersome at night. Alarm symptoms reviewed stitches motor or neurological change that would warrant ED re-evaluation. Okay to use ice for 10 minutes 3 times a day as needed for discomfort. Patient verbalizes understanding and agreement. Written instructions are provided. Vital Signs Vital signs: Initial Vital Signs Temperature 98.3 F 04/08/25 22:27 Temperature Source Temporal Artery Scan 04/08/25 22:27 Pulse Rate 87 04/08/25 22:27 Pulse Rhythm Regular 04/08/25 22:27 Respiratory Rate 18 04/08/25 22:27 Blood Pressure 115/76 04/08/25 22:27 Blood Pressure Mean 89 04/08/25 22:27 Blood Pressure Position Sitting 04/08/25 22:27 Pulse Oximetry 100 04/08/25 22:27 Oxygen Delivery Method Room Air 04/08/25 22:27 Vital Signs Temperature 98.3 F 04/08/25 22:27 Pulse Rate 87 04/08/25 22:27 Respiratory Rate 18 04/08/25 22:27 Blood Pressure 115/76 04/08/25 22:27 Pulse Oximetry 100 04/08/25 22:27 Oxygen Delivery Method Room Air 04/08/25 22:27 Temperature 98.3 F 04/09/25 01:37 Pulse Rate 80 04/09/25 01:37 Respiratory Rate 18 04/09/25 01:37 Blood Pressure 118/74 04/09/25 01:37 Pulse Oximetry 100 04/09/25 01:37 Oxygen Delivery Method Room Air 04/09/25 01:37 Medical Decision Making Imaging Data X-ray left wrist: Attestation: I have reviewed the pertinent imaging results. My impression: I initially did see the fracture but went back and looked after the radiology report and agree that there is a subtle lucency and nondisplaced finding in the distal radial styloid Radiologist's impression: Impression: Questionable nondisplaced fracture of the radial styloid. If there is focal tenderness at this location, recommend CT for further evaluation. Dictated by Davon Duval MD @ 04/08/2025 11:36:11 PM X-ray left hand: Attestation: I have reviewed the pertinent imaging results. My impression: Osteoarthritic changes but no signs of fracture or swelling Radiologist's impression: Impression: No evidence of an acute bony abnormality. Dictated by Davon Duval MD @ 04/08/2025 11:34:15 PM Discharge Plan Discharge Clinical Impression: Nondisplaced fracture of left radial styloid process, initial encounter for closed fracture Patient Disposition: Home w/ Parent or Adult Condition: Improved Instructions: Wrist Fracture in Adults (ED) Additional Instructions: As we discussed, there is a small, nondisplaced fracture at the tip of your radius bone in your wrist. This has an excellent overall prognosis since the 2 parts of the fracture do line up perfectly. We discussed the cast, verses a splint. In your case a splint seems to make the most sense. Try to wear the splint as much as possible, removing only to gently wash the hands or to shower. I do want you to wear it to sleep as well. You may to wash but try to get it back on as quickly as possible. Please call the orthopedic office at to schedule a follow-up appointment in about 2 weeks. For pain, I recommend Tylenol 1000 mg every 6 hours. We discussed ibuprofen and it may cause some stomach irritation for you. Being on omeprazole will be somewhat protective. If your pain is very bothersome, it sounds like the ibuprofen would be safe for you to use but try to limit it to no more than 600 mg once daily and try to take it with food. This does tend to hurt a little bit more at night. It is okay to use gentle zkzv-aps-xhgaicv sleep aids like melatonin, Benadryl or Unisom in combination with your pain medications. If you have loss of motor or nerve function or severe uncontrolled pain, please return to the emergency room. Activity Level: Light activity Discharge Diet: Regular Prescriptions: No Action sumatriptan succinate 50 mg tablet PO esomeprazole magnesium 40 mg capsule,delayed release(DR/EC) 40 mg PO DAILY rosuvastatin 40 mg tablet 40 mg PO DAILY estradiol [Vagifem] 10 mcg tablet 10 mcg vaginal 2XW Follow Up/Referrals: Anastasiia Vann DO [Primary Care Provider, Family Practice] Stand Alone Forms: [facility] Instructions
== END 2025-04-09 01:38 | disposition home or self-care (01) ==
PROVIDERS: Emergency Provider Family Medicine; PCP Family Medicine
DX: S52.515A Nondisplaced fracture of left radial styloid process, initial encounter for closed fracture (principal); W01.0XXA Fall on same level from slipping, tripping and stumbling without subsequent striking against object, initial encounter
CPT/HCPCS: 73110; 73130; 99283; 99284